=== PATIENT | male | born 1995 | race American Indian/Alaskan Native ===

== ENCOUNTER 2021-05-31 23:27 | Emergency (ER) | payer OTHER ==
[2021-06-01 00:24] VITALS: BP 118/65
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
== END 2021-06-01 04:22 | disposition home or self-care (01) ==
LOC: ED 23:27
DX: S40.012A Contusion of left shoulder, initial encounter (principal); V43.52XA Car driver injured in collision with other type car in traffic accident, initial encounter; Y92.410 Unspecified street and highway as the place of occurrence of the external cause; Y93.89 Activity, other specified; Y99.8 Other external cause status
CPT/HCPCS: 99283